=== PATIENT | female | born 1930 | race Caucasian/White ===

== ENCOUNTER → 2017-03-29 | Outpatient (CLI) | payer MEDICARE, OTHER ==
[~2017-03-29] MED LIST: 1-ME1LIQ PO; CARV12.5 PO; ECOT325T PO; ENAL10TA7 PO; EZET10 PO; ISOS60 PO; NITR0.4S SL; POTA-267 OR; WALKER STANDARD
[2017-03-29 17:12] LABS: ALBUMIN 3.7 GM/DL (3.4-5.0); BICARBONATE 28.2 MEQ/L (21.0-32.0); CALCIUM 8.7 MG/DL (8.5-10.1); CREATININE 0.75 MG/DL (0.50-1.00)
[2017-03-29 17:19] LABS: CHOLESTEROL/ HDL RATIO 3.72 RATIO; DIRECT BILIRUBIN ADULT 0.2 MG/DL (0.0-0.2); HDL CHOLESTEROL 68.4 MG/DL (40.0-60.0); INDIRECT BILIRUBIN 0.4 MG/DL (0.0-0.8); TOTAL BILIRUBIN ADULT 0.6 MG/DL (0.2-1.0)
== END ==
LOC: PLAB 13:53
PROVIDERS: ATTEND Internal Medicine Cardiovascular Disease
DX: I25.10 Atherosclerotic heart disease of native coronary artery without angina pectoris (principal); E78.5 Hyperlipidemia, unspecified; Z79.899 Other long term (current) drug therapy
CPT/HCPCS: 36415; 80048; 80061; 80076

== ENCOUNTER → 2017-06-22 | Day surgery (SDC) | payer MEDICARE, OTHER ==
[~2017-06-22] VITALS: Ht 165.1 cm; Wt 57.0 kg
[~2017-06-22] MED LIST changes: -1-ME1LIQ PO; +AMLO10TA2 PO; +ASPI1TAB57 PO; -ECOT325T PO; +ENAL10TA PO; -ENAL10TA7 PO; +HYALURONIDASE/LIDOCAINE/BUPIVACAINE 5 ML SYR LEFT EYE ONE; -ISOS60 PO; +ISOS60TA PO; +LACTATED RINGER'S 1000 ML IV PRN; +LIDOCAINE HCL 1% PF 30 ML VIAL ONE; +METOPROLOL TARTRATE 25 MG TAB PO PRN; -NITR0.4S SL; +NITR1SUB3 SL; -POTA-267 OR; +POTA10CA PO; +PROPARACAINE HCL 0.5% OPHT SOLN 15 ML BTL LEFT EYE ONE; +PROPOFOL 200 MG/20 ML AMP ONE; +SODIUM CHLORID 0.9% 500 ML IV PRN; +TOBRAMYCIN/DEXAMETHASONE OPTH OINT 3.5 GM TUBE ONE; -WALKER STANDARD
[2017-06-22 07:10] VITALS: TEMP 97.5
[2017-06-22 07:15] VITALS: PULSE 58
[2017-06-22] MEDS: PHENYLEPHRINE HCL 10% OPTH SOLN 5 ML BTL LEFT EYE SCH ×4 (07:20→07:35)
[2017-06-22] MEDS: FLURBIPROFEN 0.03% OPHT SOLN 2.5 ML BTL LEFT EYE SCH ×4 (07:20→07:35)
[2017-06-22] MEDS: TROPICAMIDE 1% OPHT SOLN 15 ML BTL LEFT EYE SCH ×4 (07:20→07:35)
[2017-06-22] MEDS: CYCLOPENTOLATE HCL 1% OPHT SOLN 2 ML BTL LEFT EYE SCH ×4 (07:20→07:35)
[2017-06-22 08:04] VITALS: PULSE 46
[2017-06-22 09:00] VITALS: BP 167/59; PULSE 76; RESP 18; O2SAT 98
--- NOTE | 2017-06-22 10:11 | MP ---
cc: Matthew Warren MD DATE OF OPERATION: 06/22/2017 [facility] # [id number] PREOPERATIVE DIAGNOSIS: Visually significant cataract left eye. POSTOPERATIVE DIAGNOSIS: Visually significant cataract left eye. OPERATION: Phacoemulsification with posterior chamber lens implantation, left eye. SURGEON: Matthew Warren MD ANESTHESIA: Retrobulbar with MAC. COMPLICATIONS: None. PROCEDURE: After informed consent was obtained, the patient was brought into the operative suite and placed on appropriate monitors by the Anesthesia Service. The patient had received a prior retrobulbar injection of local anesthetic by the Anesthesia Service in the holding area. The patient's operative eye was then prepped and draped in the usual sterile fashion. A wire lid speculum was placed. A paracentesis incision was made in the peripheral cornea with a 1 mm oscar keratome. The anterior chamber was filled with viscoelastic. The anterior chamber was then entered through a stepped, clear corneal incision using a sharp 3 mm oscar keratome. A circular tear capsulorrhexis was then made with a bent needle cystitome. Following hydrodissection of the lens nucleus with balanced saline, phaco-emulsification of the nucleus was performed using a modified chopping technique. The remaining cortex was removed with irrigation/aspiration. The prior two procedures were both performed using the handpieces of the [employer] phaco unit. The capsular bag was then filled with viscoelastic. The intraocular lens was then injected into the capsular bag and positioned. The type of intraocular lens and its power can be found elsewhere in this chart. The remaining viscoelastic was then removed from the anterior chamber with the IA handpiece. The anterior chamber was reformed with balanced saline. The wound was then closed securely with stromal hydration. It was found to be watertight to an intraocular pressure of at least 30 mmHg by palpation. A small amount of balanced salt solution was then removed through the paracentesis site and the intraocular pressure at the end of the case was approximately 20 by palpation. All drapes were then removed. TobraDex ointment was then placed in the eye, which was closed beneath a semi-pressure patch dressing. The patient tolerated this procedure well and left the operating room awake and alert. The patient is to follow-up in my office in the morning. ADDENDUM: Due to the patient's poorly dilating pupil, a Malyugin ring was used to promote and maintain adequate pupillary mydriasis for phacoemulsification and lens implantation. MD FAHAD Willett/MONET , 10:02 AM , 10:11 AM
== END | disposition home or self-care (01) ==
LOC: PHSDC 06:23
PROVIDERS: ATTEND Optometrist Occupational Vision
DX: H25.812 Combined forms of age-related cataract, left eye (principal); I10 Essential (primary) hypertension
CPT/HCPCS: 00142; 66984; J7040; V2632

== ENCOUNTER → 2017-08-03 | Day surgery (SDC) | payer MEDICARE, OTHER ==
[~2017-08-03] VITALS: Ht 165.1 cm; Wt 56.0 kg
[~2017-08-03] MED LIST changes: +CHLORHEXIDINE GLUCONATE 2 % 1 PACK (2 CLOTHS) TOPICAL PRN; -EZET10 PO; -HYALURONIDASE/LIDOCAINE/BUPIVACAINE 5 ML SYR LEFT EYE ONE; +HYALURONIDASE/LIDOCAINE/BUPIVACAINE 5 ML SYR RIGHT EYE ONE; +HYALURONIDASE/LIDOCAINE/BUPIVACAINE 5 ML SYR RIGHT EYE PRN; -METOPROLOL TARTRATE 25 MG TAB PO PRN; +POVIDONE IODINE 5% (ANTISEPSIS KIT) 4 APPLICATIONS EACH NARE PRN; -PROPARACAINE HCL 0.5% OPHT SOLN 15 ML BTL LEFT EYE ONE; +PROPARACAINE HCL 0.5% OPHT SOLN 15 ML BTL RIGHT EYE ONE
[2017-08-03 07:19] VITALS: PULSE 54
[2017-08-03] MEDS: CYCLOPENTOLATE HCL 1% OPHT SOLN 2 ML BTL RIGHT EYE SCH ×4 (07:20→07:35)
[2017-08-03] MEDS: TROPICAMIDE 1% OPHT SOLN 15 ML BTL RIGHT EYE SCH ×4 (07:20→07:35)
[2017-08-03] MEDS: FLURBIPROFEN 0.03% OPHT SOLN 2.5 ML BTL RIGHT EYE SCH ×4 (07:20→07:35)
[2017-08-03] MEDS: PHENYLEPHRINE HCL 10% OPTH SOLN 5 ML BTL RIGHT EYE SCH ×4 (07:35→07:50)
[2017-08-03 07:40] VITALS: PULSE 53
[2017-08-03 10:10] VITALS: BP 136/48; PULSE 65; RESP 16; TEMP 98.1; O2SAT 98
--- NOTE | 2017-08-03 10:17 | MP ---
cc: Matthew Warren MD DATE OF OPERATION: 08/03/2017 DATE OF PROCEDURE: 08/03/2017 PREOPERATIVE DIAGNOSIS: Visually significant cataract right eye. POSTOPERATIVE DIAGNOSIS: Visually significant cataract right eye. OPERATION: Phacoemulsification with posterior chamber lens implantation, right eye. SURGEON: Matthew Warren MD ANESTHESIA: Retrobulbar with MAC. COMPLICATIONS: None. PROCEDURE: After informed consent was obtained, the patient was brought into the operative suite and placed on appropriate monitors by the Anesthesia Service. The patient had received a prior retrobulbar injection of local anesthetic by the Anesthesia Service in the holding area. The patient's operative eye was then prepped and draped in the usual sterile fashion. A wire lid speculum was placed. A paracentesis incision was made in the peripheral cornea with a 1 mm oscar keratome. The anterior chamber was filled with viscoelastic. The anterior chamber was then entered through a stepped, clear corneal incision using a sharp 3 mm oscar keratome. A circular tear capsulorrhexis was then made with a bent needle cystitome. Following hydrodissection of the lens nucleus with balanced saline, phaco-emulsification of the nucleus was performed using a modified chopping technique. The remaining cortex was removed with irrigation/aspiration. The prior two procedures were both performed using the handpieces of the [employer] phaco unit. The capsular bag was then filled with viscoelastic. The intraocular lens was then injected into the capsular bag and positioned. The type of intraocular lens and its power can be found elsewhere in this chart. The remaining viscoelastic was then removed from the anterior chamber with the IA handpiece. The anterior chamber was reformed with balanced saline. The wound was then closed securely with stromal hydration. It was found to be watertight to an intraocular pressure of at least 30 mmHg by palpation. A small amount of balanced salt solution was then removed through the paracentesis site and the intraocular pressure at the end of the case was approximately 20 by palpation. All drapes were then removed. TobraDex ointment was then placed in the eye, which was closed beneath a semi-pressure patch dressing. The patient tolerated this procedure well and left the operating room awake and alert. The patient is to follow-up in my office in the morning. Matthew MD DELORES Lilly , 10:06 AM , 10:16 AM
== END | disposition home or self-care (01) ==
LOC: PHSDC 06:25
PROVIDERS: ATTEND Optometrist Occupational Vision
DX: H25.811 Combined forms of age-related cataract, right eye (principal)
CPT/HCPCS: 00142; 66984; J7040; V2632